=== PATIENT | male | born 1965 | race Caucasian/White ===

== ENCOUNTER → 2023-04-18 | Day surgery (SDC) | payer OTHER ==
[2023-04-17 13:45] LABS: BASOPHILS # (AUTO) 0.1 (0.0-0.1); BASOPHILS % 0.6 % (0.0-1.0); EOSINOPHILS # (AUTO) 0.2 (0.0-0.4); EOSINOPHILS % 2.4 % (0.0-6.0); HEMOGLOBIN 16.4 g/dL (14.0-18.0); LYMPHOCYTES # (AUTO) 2.2 (1.0-3.2); LYMPHOCYTES % 28.1 % (18.0-39.1); MEAN CORPUSCULAR HGB CONC 36.4 g/dL (31-35); MEAN CORPUSCULAR VOLUME 93.4 fL (81-99); MONOCYTES # (AUTO) 0.8 (0.2-0.8); MONOCYTES % 10.2 % (4.4-11.3); NEUTROPHILS # (AUTO) 4.7 (2.1-6.9); NEUTROPHILS % 58.6 % (38.7-80.0); PLATELET COUNT 269 x10e3/uL (140-360); RED BLOOD COUNT 4.82 x10e6/uL (4.3-5.7); RED CELL DISTRIBUTION WIDTH 12.6 % (11.7-14.4); WHITE BLOOD COUNT 7.97 x10e3/uL (4.8-10.8)
[2023-04-17 14:09] LABS: ANION GAP 17.5 mmol/L (8-16); CALCIUM 9.7 mg/dL (8.4-10.2); CREATININE, SERUM 1.15 mg/dL (0.72-1.25); POTASSIUM 3.5 mmol/L (3.5-5.1)
[~2023-04-18] MED LIST: ACETAMINOPHEN/CODEINE 300MG - 30MG TAB ONE; ACETAMINOPHEN/CODEINE 300MG - 30MG TAB PO ONE; ALLOPURINOL300 MG PO; ARIMIDEX1 MG PO; CEFTRIAXONE 1 GM VIAL ONE; CEFUROXIME250 MG PO; DESCOVY 200-251 EACH PO; DEXAMETHASONE SOD PHOS INJ 4 MG/ML SDV ONE; EPHEDRINE SULFATE INJ 50 MG/ML VIAL ONE; FENTANYL CITRATE/PF 100MCG/2 ML INJ ONE; FINASTERIDE5 MG PO; FLECAINIDE ACE100 MG PO; FLOMAX0.4 MG PO; GABAPENTIN300 MG PO; GAMUNEX-C10 GM/100 IV; GENTAMICIN 80MG/NS 100 ML 200 ML IV ONE; HYDROCHLOROTHIA25 MG PO; HYOSCYAMINE0.375 MG SL; IOPAMIDOL 610MG/1ML 300 MG/ML VIAL IV ONE; LACTATED RINGER'S 1,000 ML ONE; LIDOCAINE HCL 2% LOCAL INJ 5 ML SDV VIAL INJ ONE; METFORMIN HCL500 M2 PO; METOPROLOL SUCC50 MG PO; MIDAZOLAM HCL 2 MG/2 ML VIAL ONE; ONDANSETRON HCL INJ 2MG/ML 2ML 2 MG/ML VIAL ONE; OXYBUTYNIN CHLOR5 M1 PO; PHENAZOPYRIDINE HCL 100 MG TAB ONE; PHENAZOPYRIDINE HCL 100 MG TAB PO ONE; POTASSIUM CITR10 MEQ PO; PROPOFOL IV EMULSION 10 MG/ML 20 ML VIAL ONE; SEVOFLURANE INHAL SOLN 250 ML PEN BTL ONE; ULTRAM 50MG50 MG PO
[2023-04-18 15:13] VITALS: TEMP 98
[2023-04-18 18:15] VITALS: BP 145/82; PULSE 74; RESP 16; O2SAT 96
== END | disposition home or self-care (01) ==
LOC: OR 11:00
PROVIDERS: ATTEND Urology
DX: N20.1 Calculus of ureter (principal); Z46.6 Encounter for fitting and adjustment of urinary device; N13.30 Unspecified hydronephrosis; G47.33 Obstructive sleep apnea (adult) (pediatric); E11.9 Type 2 diabetes mellitus without complications; I10 Essential (primary) hypertension; I48.91 Unspecified atrial fibrillation; G62.9 Polyneuropathy, unspecified; Z01.810 Encounter for preprocedural cardiovascular examination; Z01.812 Encounter for preprocedural laboratory examination; Z01.818 Encounter for other preprocedural examination; Z79.84 Long term (current) use of oral hypoglycemic drugs
CPT/HCPCS: 36415; 52356; 74018; 74420; 80048; 83970; 84550; 85025; 87086; 87186; 88300; 93005; C1758; C1769; C1874; J0696; J1100; J1580; J2001; J2250; J2405; J2704; J3010; J7121; Q9967

== ENCOUNTER 2023-08-04 11:58 | Emergency (ER) | payer OTHER ==
[~2023-08-04] VITALS: Ht 170.2 cm; Wt 112.9 kg
[~2023-08-04 11:58] MED LIST changes: -ACETAMINOPHEN/CODEINE 300MG - 30MG TAB ONE; -ACETAMINOPHEN/CODEINE 300MG - 30MG TAB PO ONE; -CEFTRIAXONE 1 GM VIAL ONE; +CIALIS5 MG PO; +CIPRO500 MG PO; -DEXAMETHASONE SOD PHOS INJ 4 MG/ML SDV ONE; +ELIQUIS5 MG PO; -EPHEDRINE SULFATE INJ 50 MG/ML VIAL ONE; -FENTANYL CITRATE/PF 100MCG/2 ML INJ ONE; -GENTAMICIN 80MG/NS 100 ML 200 ML IV ONE; -IOPAMIDOL 610MG/1ML 300 MG/ML VIAL IV ONE; -LACTATED RINGER'S 1,000 ML ONE; -LIDOCAINE HCL 2% LOCAL INJ 5 ML SDV VIAL INJ ONE; -MIDAZOLAM HCL 2 MG/2 ML VIAL ONE; -ONDANSETRON HCL INJ 2MG/ML 2ML 2 MG/ML VIAL ONE; -PHENAZOPYRIDINE HCL 100 MG TAB ONE; -PHENAZOPYRIDINE HCL 100 MG TAB PO ONE; -PROPOFOL IV EMULSION 10 MG/ML 20 ML VIAL ONE; -SEVOFLURANE INHAL SOLN 250 ML PEN BTL ONE; +UROGESIC-BLUE1 EACH PO
[2023-08-04 13:34] LABS: BASOPHILS % 0.2 % (0.0-1.0); EOSINOPHILS # (AUTO) 0.2 (0.0-0.4); HEMATOCRIT 41.3 % (38.2-49.6); HEMOGLOBIN 14.2 g/dL (14.0-18.0); LYMPHOCYTES % 5.8 % (18.0-39.1); MEAN CORPUSCULAR HEMOGLOBIN 34.1 pg (28-32); MEAN CORPUSCULAR HGB CONC 34.4 g/dL (31-35); MEAN CORPUSCULAR VOLUME 99.3 fL (81-99); MONOCYTES # (AUTO) 1.1 (0.2-0.8); MONOCYTES % 6.9 % (4.4-11.3); NEUTROPHILS # (AUTO) 13.8 (2.1-6.9); NEUTROPHILS % 83.4 % (38.7-80.0); PLATELET COUNT 159 x10e3/uL (140-360); RED BLOOD COUNT 4.16 x10e6/uL (4.3-5.7); RED CELL DISTRIBUTION WIDTH 12.8 % (11.7-14.4); WHITE BLOOD COUNT 16.59 x10e3/uL (4.8-10.8)
[2023-08-04 13:45] LABS: INR 1.13; PROTHROMBIN TIME 14.7 seconds (11.9-14.5)
[2023-08-04 13:46] LABS: PARTIAL THROMBOPLASTIN TIME 33.2 seconds (23.8-35.5)
[2023-08-04 13:56] LABS: BILIRUBIN,URINE NEGATIVE (NEGATIVE); CLARITY,URINE HAZY (CLEAR); COLOR,URINE BROWN (YELLOW); GLUCOSE, URINE NEGATIVE (NEGATIVE); KETONES,URINE NEGATIVE (NEGATIVE); LEUKOCYTE ESTERASE ,URINE TRACE (NEGATIVE); NITRITE,URINE NEGATIVE (NEGATIVE); PH,URINE 7 (5 - 7); PROTEIN,URINE DIPSTICK 2+ (NEGATIVE); URINE UROBILINOGEN 0.2 mg/dL (0.2 - 1)
[2023-08-04 13:57] LABS: ALBUMIN 2.9 g/dL (3.5-5.0); ALBUMIN/GLOBULIN RATIO 0.6 (0.8-2.0); ANION GAP 15.3 mmol/L (8-16); BILIRUBIN,TOTAL 0.8 mg/dL (0.2-1.2); CALCIUM 9.7 mg/dL (8.4-10.2); CREATININE, SERUM 1.91 mg/dL (0.72-1.25); POTASSIUM 3.3 mmol/L (3.5-5.1); TOTAL PROTEIN 7.5 g/dL (6.5-8.1)
[2023-08-04 14:07] LABS: BACTERIA,URINE RARE /HPF; RBC,URINE >50 /HPF (0-5); WBC,URINE (MAN) 0-5 /HPF (0-5)
[2023-08-04] MEDS ORDERED: ACETAMINOPHEN 1000 MG/100 ML IV ONE (15:30)
[2023-08-04 16:53] VITALS: BP 112/65; PULSE 78; RESP 16; TEMP 99.7; O2SAT 97
== END 2023-08-04 17:03 | disposition other institution (70) ==
LOC: ER 12:45
DX: R50.9 Fever, unspecified (principal); N20.0 Calculus of kidney; E11.65 Type 2 diabetes mellitus with hyperglycemia; E11.40 Type 2 diabetes mellitus with diabetic neuropathy, unspecified; I48.91 Unspecified atrial fibrillation; Z87.442 Personal history of urinary calculi; I10 Essential (primary) hypertension; R94.31 Abnormal electrocardiogram [ECG] [EKG]
CPT/HCPCS: 36415; 74176; 80053; 81001; 83605; 85025; 85610; 85730; 87040; 87086; 93005; 99284; J0131; J0696

== ENCOUNTER 2024-02-23 05:27 | Inpatient (IN) | payer OTHER ==
[2024-02-23] VITALS (7 sets, daily range): BP systolic 117–131; BP diastolic 66–75; PULSE 63–91; RESP 18; TEMP 97.4–98.6; O2SAT 96–100
[~2024-02-23 05:27] MED LIST changes: +CLARITIN10 MG PO; +FLUCONAZOLE100 MG PO; +MAGNESIUM; +VITAMIN B COMP1 EAC1; +VITAMIN D31 ML
[2024-02-23] MEDS: SODIUM CHLORIDE 0.9% 1000ML 1,000 ML ONE (05:40)
[2024-02-23] MEDS: CEFTRIAXONE 1 GM VIAL ONE (05:41)
[2024-02-23] MEDS: GENTAMICIN 80MG/NS 100 ML 200 ML IV ONE (05:42)
[2024-02-23] MEDS ORDERED: MAGNESIUM GLYC100 MG PO (06:38)
[2024-02-23] MEDS ORDERED: POTASSIUM CITR15 MEQ PO (06:38)
[2024-02-23] MEDS ORDERED: LUPRON DEPOT45 MG IM (06:38)
[2024-02-23] MEDS ORDERED: TESTOPEL75 MG SQ (06:39)
[2024-02-23] MEDS ORDERED: IOPAMIDOL 610MG/1ML 300 MG/ML VIAL IV ONE (06:49)
[2024-02-23] MEDS ORDERED: SUGAMMADEX SODIUM 200 MG/2 ML VIAL IV ONE ×2 (07:17→11:59)
[2024-02-23] MEDS ORDERED: ONDANSETRON HCL INJ 2MG/ML 2ML 2 MG/ML VIAL IV PRN (08:45)
[2024-02-23] MEDS ORDERED: DIPHENHYDRAMINE HCL 25 MG CAP PO PRN (08:45)
[2024-02-23] MEDS ORDERED: ACETAMINOPHEN 1000 MG/100 ML IV PRN (08:45)
[2024-02-23] MEDS: FENTANYL CITRATE/PF 100MCG/2 ML INJ ONE (09:04)
[2024-02-23] MEDS ORDERED: SODIUM CHLORIDE 0.9% 1000ML 1,000 ML ONE (09:51)
[2024-02-23] MEDS: SODIUM CHLORIDE 0.9% 1000ML 1,000 ML IV SCH (11:35)
[2024-02-23] MEDS: PHENAZOPYRIDINE HCL 100 MG TAB PO PRN (11:54)
[2024-02-23] MEDS ORDERED: ROCURONIUM BROMIDE 10 MG/ML 5ML VIAL IV ONE (11:59)
[2024-02-23] MEDS ORDERED: PROPOFOL IV EMULSION 10 MG/ML 20 ML VIAL ONE (11:59)
[2024-02-23] MEDS ORDERED: ONDANSETRON HCL INJ 2MG/ML 2ML 2 MG/ML VIAL ONE (11:59)
[2024-02-23] MEDS ORDERED: EPHEDRINE SULFATE INJ 50 MG/ML VIAL ONE (11:59)
[2024-02-23] MEDS ORDERED: SEVOFLURANE INHAL SOLN 250 ML PEN BTL ONE (11:59)
[2024-02-23] MEDS ORDERED: LIDOCAINE HCL 2% LOCAL INJ 5 ML SDV VIAL INJ ONE (11:59)
[2024-02-23] MEDS ORDERED: METOCLOPRAMIDE HCL 10 MG/2ML VIAL ONE (11:59)
[2024-02-23] MEDS ORDERED: ACETAMINOPHEN 1000 MG/100 ML IV ONE (11:59)
[2024-02-23] MEDS ORDERED: FENTANYL CITRATE/PF 100MCG/2 ML INJ ONE (12:15)
[2024-02-23 14:50] LABS: EOSINOPHILS # (AUTO) 0.1 (0.0-0.4); EOSINOPHILS % 0.7 % (0.0-6.0); HEMATOCRIT 36.8 % (38.2-49.6); HEMOGLOBIN 12.4 g/dL (14.0-18.0); LYMPHOCYTES # (AUTO) 1.3 (1.0-3.2); LYMPHOCYTES % 19.3 % (18.0-39.1); MEAN CORPUSCULAR HEMOGLOBIN 34.4 pg (28-32); MEAN CORPUSCULAR HGB CONC 33.7 g/dL (31-35); MEAN CORPUSCULAR VOLUME 102.2 fL (81-99); MONOCYTES # (AUTO) 0.4 (0.2-0.8); MONOCYTES % 5.6 % (4.4-11.3); NEUTROPHILS # (AUTO) 5.1 (2.1-6.9); NEUTROPHILS % 74.1 % (38.7-80.0); PLATELET COUNT 188 x10e3/uL (140-360); RED CELL DISTRIBUTION WIDTH 12.6 % (11.7-14.4); WHITE BLOOD COUNT 6.93 x10e3/uL (4.8-10.8)
[2024-02-23 15:10] LABS: ANION GAP 13.8 mmol/L (8-16); CALCIUM 8.3 mg/dL (8.4-10.2); CREATININE, SERUM 1.05 mg/dL (0.72-1.25); POTASSIUM 3.8 mmol/L (3.5-5.1)
[2024-02-23] MEDS ORDERED: DEXTROSE 50% SYRINGE 50 ML IV PRN (21:15)
[2024-02-23] MEDS: GABAPENTIN 300 MG CAP PO SCH (21:38)
[2024-02-23] MEDS: METOPROLOL SUCCINATE 50 MG TAB XL PO SCH (21:39)
[2024-02-23] MEDS: FINASTERIDE 5 MG TAB PO SCH (21:39)
[2024-02-23] MEDS: TAMSULOSIN HCL 0.4 MG CAP PO SCH (21:39)
[2024-02-23] MEDS: ACETAMINOPHEN/CODEINE 300MG - 30MG TAB PO PRN (21:40)
[2024-02-24] VITALS (10 sets, daily range): BP systolic 117–138; BP diastolic 62–74; PULSE 65–87; RESP 16–20; TEMP 98.3–100.8; O2SAT 92–99
[2024-02-24 05:12] LABS: BASOPHILS % 0.2 % (0.0-1.0); EOSINOPHILS # (AUTO) 0.2 (0.0-0.4); EOSINOPHILS % 2.3 % (0.0-6.0); HEMATOCRIT 36.5 % (38.2-49.6); HEMOGLOBIN 12.7 g/dL (14.0-18.0); LYMPHOCYTES # (AUTO) 0.6 (1.0-3.2); LYMPHOCYTES % 9.9 % (18.0-39.1); MEAN CORPUSCULAR HEMOGLOBIN 34.9 pg (28-32); MEAN CORPUSCULAR HGB CONC 34.8 g/dL (31-35); MEAN CORPUSCULAR VOLUME 100.3 fL (81-99); MONOCYTES # (AUTO) 0.5 (0.2-0.8); MONOCYTES % 8.4 % (4.4-11.3); NEUTROPHILS # (AUTO) 5.1 (2.1-6.9); NEUTROPHILS % 78.9 % (38.7-80.0); PLATELET COUNT 183 x10e3/uL (140-360); RED BLOOD COUNT 3.64 x10e6/uL (4.3-5.7); RED CELL DISTRIBUTION WIDTH 12.5 % (11.7-14.4); WHITE BLOOD COUNT 6.44 x10e3/uL (4.8-10.8)
[2024-02-24 05:55] LABS: ANION GAP 12.7 mmol/L (8-16); CALCIUM 8.4 mg/dL (8.4-10.2); CREATININE, SERUM 0.97 mg/dL (0.72-1.25); POTASSIUM 3.7 mmol/L (3.5-5.1)
[2024-02-24] MEDS: INSULIN LISPRO 100 UNIT/1 ML 3ML VIAL SQ SCH (07:30)
[2024-02-24] MEDS: FLECAINIDE ACETATE 100 MG TAB PO SCH (12:01)
[2024-02-24] MEDS: POTASSIUM CITRATE ER 10 MEQ TAB PO SCH (12:01)
[2024-02-24] MEDS: HYDROCHLOROTHIAZIDE 25 MG TAB PO SCH (12:02)
[2024-02-24] MEDS: ALLOPURINOL 300 MG TAB PO SCH (12:02)
[2024-02-24] MEDS ORDERED: DOCUSATE SODIUM 100 MG CAP PO PRN (14:45)
[2024-02-24] MEDS ORDERED: SIMETHICONE 80 MG CHEW PO PRN (14:45)
[2024-02-24] MEDS ORDERED: ALBUTEROL/IPRATROPIUM 3 ML NEB NEB PRN (14:45)
[2024-02-24] MEDS ORDERED: MELATONIN 3 MG TAB PO PRN (14:45)
[2024-02-24] MEDS ORDERED: METOPROLOL TARTRATE INJ 1 MG/ML VIAL IV PRN (14:45)
[2024-02-24 14:54] LABS: CHOL/HDL RATIO 4.6 (3.9-4.7)
[2024-02-24] MEDS: ACETAMINOPHEN 325 MG TAB PO PRN (15:29)
[2024-02-24] MEDS ORDERED: POTASSIUM CITRATE ER 10 MEQ TAB PO SCH (17:00)
[2024-02-24] MEDS ORDERED: FLECAINIDE ACETATE 100 MG TAB PO SCH (17:00)
[2024-02-24] MEDS ORDERED: HYDROCHLOROTHIAZIDE 25 MG TAB PO SCH (17:00)
[2024-02-24] MEDS: LORATADINE 10 MG TAB PO SCH (20:25)
[2024-02-25 03:23] VITALS: BP 104/66; PULSE 64; RESP 18; TEMP 98.2; O2SAT 96
[2024-02-25 05:28] LABS: BASOPHILS % 0.2 % (0.0-1.0); EOSINOPHILS # (AUTO) 0.3 (0.0-0.4); EOSINOPHILS % 4.5 % (0.0-6.0); HEMATOCRIT 37.8 % (38.2-49.6); HEMOGLOBIN 12.6 g/dL (14.0-18.0); LYMPHOCYTES # (AUTO) 1.7 (1.0-3.2); LYMPHOCYTES % 27.8 % (18.0-39.1); MEAN CORPUSCULAR HEMOGLOBIN 34.2 pg (28-32); MEAN CORPUSCULAR HGB CONC 33.3 g/dL (31-35); MEAN CORPUSCULAR VOLUME 102.7 fL (81-99); MONOCYTES # (AUTO) 0.8 (0.2-0.8); MONOCYTES % 13.4 % (4.4-11.3); NEUTROPHILS # (AUTO) 3.3 (2.1-6.9); NEUTROPHILS % 53.8 % (38.7-80.0); PLATELET COUNT 168 x10e3/uL (140-360); RED BLOOD COUNT 3.68 x10e6/uL (4.3-5.7); RED CELL DISTRIBUTION WIDTH 12.6 % (11.7-14.4); WHITE BLOOD COUNT 6.18 x10e3/uL (4.8-10.8)
[2024-02-25 05:59] LABS: ANION GAP 13.5 mmol/L (8-16); CALCIUM 8.4 mg/dL (8.4-10.2); CREATININE, SERUM 0.97 mg/dL (0.72-1.25); POTASSIUM 3.5 mmol/L (3.5-5.1)
[2024-02-25 08:00] VITALS: BP 119/73; PULSE 66; RESP 16; TEMP 98.4; O2SAT 97
[2024-02-25] MEDS ORDERED: ALLOPURINOL 300 MG TAB PO SCH (10:00)
[2024-02-25 11:12] VITALS: PULSE 66; RESP 18; O2SAT 97
[2024-02-25 12:09] VITALS: BP 135/75; PULSE 78; RESP 16; TEMP 98.2; O2SAT 97
[2024-02-25] MEDS ORDERED: ONDANSETRON HCL 4 MG ORAL DISINTEGRATING TAB PO PRN (14:00)
[2024-02-25 16:04] VITALS: BP 138/82; PULSE 73; RESP 18; TEMP 98.6; O2SAT 99
== END 2024-02-25 19:00 | disposition home or self-care (01) | DRG 713 ==
LOC: OR 05:27 → PACU V 08:43 → MED/SURG 09:30
PROVIDERS: ADMIT Internal Medicine; ATTEND Internal Medicine
PROC: BT141ZZ Fluoroscopy of Kidneys, Ureters and Bladder using Low Osmolar Contrast (ICD-10-PCS; 2024-02-23)
PROC: 0V508ZZ Destruction of Prostate, Via Natural or Artificial Opening Endoscopic (ICD-10-PCS; principal; 2024-02-23 07:15)
DX: N40.1 Benign prostatic hyperplasia with lower urinary tract symptoms (principal); I48.20 Chronic atrial fibrillation, unspecified; Z68.41 Body mass index [BMI] 40.0-44.9, adult; E66.9 Obesity, unspecified; E83.51 Hypocalcemia; C61 Malignant neoplasm of prostate; R31.9 Hematuria, unspecified; M10.9 Gout, unspecified; I10 Essential (primary) hypertension; R73.03 Prediabetes
CPT/HCPCS: 36415; 74420; 80048; 80061; 82948; 83036; 83735; 85025; 94799; C1758; J0696; J1580; J2001; J2405; J2765; J7030

== ENCOUNTER → 2024-07-16 | Outpatient (REF) | payer OTHER ==
[~2024-07-16] MED LIST changes: +LUPRON DEPOT45 MG IM; +MAGNESIUM GLYC100 MG PO; +POTASSIUM CITR15 MEQ PO; +TESTOPEL75 MG SQ
== END ==
LOC: CT 16:02
PROVIDERS: ATTEND Urology
DX: N20.0 Calculus of kidney (principal)
CPT/HCPCS: 74176